=== PATIENT | female | born 1965 | race Asian ===

== ENCOUNTER 2017-04-11 03:38 | Emergency (ER) | payer MEDICAID ==
[~2017-04-11] VITALS: Ht 157.5 cm; Wt 78.0 kg
[~2017-04-11 03:38] MED LIST: BENA20TA3 PO; LEVO125T8 PO; METR250T PO; PROC10TA PO; PROT40 PO; QUET300T2 PO
[2017-04-11] MEDS ORDERED: KETOROLAC 30MG/ML VIAL IM ONE (06:45)
[2017-04-11] MEDS ORDERED: METHOCARBAMOL 500MG TABLET PO ONE (06:45)
[2017-04-11] MEDS ORDERED: SODIUM CHLORIDE 0.9% 1,000 ML IV ONE (06:45)
[2017-04-11 07:20] LABS: BASOPHILS % 0.9 % (0.0-2.0); EOSINOPHILS % 2.7 % (0.0-5.0); HEMATOCRIT. 39.3 % (36.0-48.0); HEMOGLOBIN. 13.4 g/dL (12.0-16.0); LYMPHOCYTES % 40.1 % (20.0-50.0); MEAN CORPUSCULAR HEMOGLOBIN 31.5 pg (28.0-32.0); MEAN CORPUSCULAR VOLUME 92.2 fL (81.0-99.0); MEAN PLATELET VOLUME 7.5 fl (7.4-10.4); NEUTROPHILS % 49.3 % (40.0-76.0); PLATELET 303 x1000/uL (130-400); RED BLOOD CELL COUNT 4.26 mill/uL (4.2-5.4)
[2017-04-11 07:29] LABS: PROTHROMBIN TIME 10.2 sec (9.4-11.6)
[2017-04-11 07:42] LABS: HCG SCREEN NEGATIVE
[2017-04-11 07:44] LABS: CARBON DIOXIDE 27 mEq/L (21-32); CHLORIDE 110 mEq/L (98-107)
[2017-04-11 08:41] VITALS: BP 124/62
[2017-04-11] MEDS ORDERED: IBUPROFEN 600MG TABLET PO ONE (10:00)
[2017-04-11 12:24] LABS: CLARITY URINE CLEAR (CLEAR); COLOR URINE YELLOW (YELLOW); GLUCOSE URINE NEGATIVE (NEGATIVE); KETONES URINE NEGATIVE (NEGATIVE); LEUKOCYTE ESTERASE URINE NEGATIVE (NEGATIVE); NITRITE URINE NEGATIVE (NEGATIVE); OCCULT BLOOD URINE TRACE (NEGATIVE); PROTEIN URINE NEGATIVE (NEGATIVE); SPECIFIC GRAVITY URINE 1.007 (1.005-1.030); UROBILINOGEN URINE 0.2 E.U./dL (0.2-1.0)
== END 2017-04-11 10:10 | disposition home or self-care (01) ==
LOC: ER 03:38
DX: S39.012A Strain of muscle, fascia and tendon of lower back, initial encounter (principal); R10.32 Left lower quadrant pain; Y93.9 Activity, unspecified; X58.XXXA Exposure to other specified factors, initial encounter; Y92.9 Unspecified place or not applicable; Y99.9 Unspecified external cause status; I10 Essential (primary) hypertension; E05.90 Thyrotoxicosis, unspecified without thyrotoxic crisis or storm; Z88.0 Allergy status to penicillin
CPT/HCPCS: 36415; 80053; 81001; 83690; 84703; 85025; 85610; 96360; 96361; 96372; 99285; J1885; J7030

== ENCOUNTER 2017-11-05 19:40 | Emergency (ER) | payer MEDICAID ==
[~2017-11-05] VITALS: Ht 160 cm; Wt 82.0 kg
[~2017-11-05 19:40] MED LIST changes: -PROC10TA PO; +PROC10TA13 PO
[2017-11-06] MEDS ORDERED: MORPHINE SULFATE 4 MG/ML CPJ (NOT FOR IM USE) IV STA (03:24)
[2017-11-06] MEDS ORDERED: SODIUM CHLORIDE 0.9% 1,000 ML IV ONE (03:24)
[2017-11-06] MEDS ORDERED: ONDANSETRON HCL 4MG/2ML VIAL IV ONE (03:30)
[2017-11-06 06:14] LABS: CLARITY URINE CLOUDY (CLEAR); COLOR URINE YELLOW (YELLOW); KETONES URINE NEGATIVE (NEGATIVE); LEUKOCYTE ESTERASE URINE NEGATIVE (NEGATIVE); NITRITE URINE NEGATIVE (NEGATIVE); OCCULT BLOOD URINE 2+ (NEGATIVE); PH URINE 5.5 (4.5-8.0); PROTEIN URINE NEGATIVE (NEGATIVE); SPECIFIC GRAVITY URINE 1.025 (1.005-1.030); UROBILINOGEN URINE 0.2 E.U./dL (0.2-1.0)
[2017-11-06 08:03] VITALS: BP 133/67
== END 2017-11-06 08:05 | disposition home or self-care (01) ==
LOC: ER 23:05
DX: M25.562 Pain in left knee (principal); M25.552 Pain in left hip; J06.9 Acute upper respiratory infection, unspecified; M19.90 Unspecified osteoarthritis, unspecified site; I10 Essential (primary) hypertension; E03.9 Hypothyroidism, unspecified; F20.9 Schizophrenia, unspecified; F12.10 Cannabis abuse, uncomplicated; Z90.721 Acquired absence of ovaries, unilateral; Z88.0 Allergy status to penicillin
CPT/HCPCS: 71045; 73562; 81003; 96374; 96375; 99285; C1893; J2270; J2405; J7030; Z7610

== ENCOUNTER 2020-09-23 12:38 | Emergency (ER) | payer MEDICAID ==
[~2020-09-23] VITALS: Ht 162.6 cm; Wt 92.0 kg
[~2020-09-23 12:38] MED LIST changes: +BENA20TA10 PO; -BENA20TA3 PO; +CALCIUM CHLORIDE 1GM/10ML SYR IV ONE; +EPINEPHRINE 0.1MG/ML (1:10,000) 10ML SYR ONE; +SODIUM BICARBONATE 8.4% 1 MEQ/ML 50ML SYR IV ONE
[2020-09-23] MEDS ORDERED: MORPHINE SULFATE 4 MG/ML CPJ (NOT FOR IM USE) IV STA (13:12)
[2020-09-23] MEDS ORDERED: ONDANSETRON HCL 4MG/2ML INJ IV STA (13:12)
[2020-09-23] MEDS ORDERED: SODIUM CHLORIDE 0.9% 1,000 ML IV ONE (13:15)
[2020-09-23 13:59] LABS: BASOPHILS % 0.4 % (0.0-2.0); EOSINOPHILS % 0.1 % (0.0-5.0); HEMATOCRIT. 49.5 % (36.0-48.0); HEMOGLOBIN. 16.7 g/dL (12.0-16.0); LYMPHOCYTES % 8.3 % (20.0-50.0); MEAN CORPUSCULAR VOLUME 91.8 fL (81.0-99.0); MEAN PLATELET VOLUME 8.2 fl (7.4-10.4); MONOCYTES % 2.6 % (2.0-8.0); NEUTROPHILS % 88.6 % (40.0-76.0); PLATELET 407 x1000/uL (130-400); RED BLOOD CELL COUNT 5.39 mill/uL (4.2-5.4); RED CELL DISTRIBUTION WIDTH 13.8 % (11.6-14.6)
[2020-09-23 14:06] LABS: CHLORIDE 104 mEq/L (98-107)
[2020-09-23 14:09] LABS: PROTHROMBIN TIME 10.5 sec (9.6-11.0)
[2020-09-23] MEDS ORDERED: ONDANSETRON HCL 4MG/2ML INJ IV ONE (14:30)
[2020-09-23] MEDS ORDERED: MORPHINE SULFATE 4 MG/ML CPJ (NOT FOR IM USE) IV ONE (14:30)
[2020-09-23] MEDS ORDERED: MEROPENEM 1,000 MG in SODIUM CHLORIDE 0.9% 100 ML IV SCH ×2 (14:45→18:30)
[2020-09-23] MEDS ORDERED: VANCOMYCIN 1 G PREMIX 200 ML IV ONE (14:45)
[2020-09-23] MEDS ORDERED: SODIUM CHLORIDE 0.9% 1000ML BAG (SEPSIS BOLUS) IV ONE (14:45)
[2020-09-23] MEDS ORDERED: HYDROMORPHONE HCL/PF 2MG/ML CPJ IV ONE (15:00)
[2020-09-23] MEDS ORDERED: IOHEXOL-350 100 ML BOTTLE ONE (15:20)
[2020-09-23] MEDS ORDERED: HYDROMORPHONE HCL/PF 2MG/ML CPJ IV NR (18:15)
[2020-09-23] MEDS ORDERED: ONDANSETRON HCL 4MG/2ML INJ IV PRN (18:30)
[2020-09-23] MEDS ORDERED: DIPHENHYDRAMINE 50MG/ML VIAL IV PRN (18:30)
[2020-09-23] MEDS ORDERED: ACETAMINOPHEN 325MG TABLET PO PRN (18:30)
[2020-09-23] MEDS ORDERED: CLONIDINE 0.1MG TABLET PO PRN (18:30)
[2020-09-23 18:45] VITALS: BP 165/90
[2020-09-23] MEDS ORDERED: DEXT 5%/0.9% NACL 1,000 ML IV SCH (19:00)
[2020-09-23] MEDS ORDERED: LEVOFLOXACIN 500MG PREMIX 100 ML IV SCH (20:00)
[2020-09-23] MEDS ORDERED: METRONIDAZOLE 500 MG PREMIX 100 ML IV SCH (22:00)
== END 2020-09-24 06:16 ==
LOC: ER 12:38 → EDBEDREQTM 16:34 → EDBEDREQ 16:34 → CANBEDREQ 20:38 → ER 09-24 06:16
DX: I46.9 Cardiac arrest, cause unspecified (principal); E11.9 Type 2 diabetes mellitus without complications; F20.9 Schizophrenia, unspecified; Z88.0 Allergy status to penicillin
CPT/HCPCS: 31500; 36415; 71275; 74174; 80053; 82962; 83605; 83880; 84145; 84484; 85025; 85610; 87040; 87086; 92950; 93005; 96361; 96365; 96366; 96368; 96375; 96376; 99291; J1170; J2185; J2270; J2405; J3370; J3490; J7030; J7050; Q9967; Z7610